=== PATIENT | male | born 1980 | race Caucasian/White ===

== ENCOUNTER 2018-09-27 11:39 | Emergency (ER) | payer SELFPAY ==
[2018-09-27 12:08] VITALS: BP 131/75; BMI 32.6
[2018-09-27] MEDS ORDERED: CYCLOBENZAPRINE10 MG PO (14:37)
[2018-09-27] MEDS ORDERED: HYDROCODON-ACE1 EA10 PO (14:37)
== END 2018-09-27 15:15 | disposition home or self-care (01) ==
LOC: D.ER 11:39
DX: S32.049A Unspecified fracture of fourth lumbar vertebra, initial encounter for closed fracture (principal); W10.9XXA Fall (on) (from) unspecified stairs and steps, initial encounter; Y93.89 Activity, other specified; Y92.89 Other specified places as the place of occurrence of the external cause